=== PATIENT | female | born 1970 | race Caucasian/White ===

== ENCOUNTER → 2021-02-04 | Outpatient (REF) ==
--- NOTE | 2021-02-04 15:28 | REP ---
INDICATION: KNEE AND FOOT PAIN. COMPARISON: None. TECHNIQUE: Four views FINDINGS: The joint spaces are symmetric and relatively well maintained. There is no evidence of acute fracture or destructive osseous lesion. IMPRESSION: Negative. <Electronically signed by Joey Mercado > 02/04/21 [id number]
--- NOTE | 2021-02-04 15:30 | REP ---
INDICATION: KNEE AND FOOT PAIN COMPARISON: None TECHNIQUE: Five views FINDINGS: There is minimal tricompartmental marginal osteophyte formation. There is no fracture, dislocation, or subluxation IMPRESSION: Mild chronic changes <Electronically signed by Joey Mercado > 02/04/21 [id number]
== END ==
LOC: M PLAIMG 13:33
PROVIDERS: ATTEND Internal Medicine
DX: M25.562 Pain in left knee (principal); M25.571 Pain in right ankle and joints of right foot